=== PATIENT | female | born 1960 | race Caucasian/White ===

== ENCOUNTER → 2024-03-22 06:54 | Outpatient (REF) | payer OTHER, SELFPAY | LOC: HWWDC 06:54 | PROVIDERS: ATTENDING PHYSICIAN Nurse Practitioner Adult Health | DX: Z12.31 Encounter for screening mammogram for malignant neoplasm of breast (principal) | CPT/HCPCS: 77063; 77067 ==

== ENCOUNTER 2024-07-12 06:12 | Day surgery (SDC) | payer OTHER, SELFPAY ==
[2024-06-27 08:46] LABS: Hematocrit 38.3 % (37.0-47.0); Mean Corp Hgb Conc. 33.9 g/dL (33.0-37.0); Mean Corpuscular Volume 94.3 fL (81.0-99.0); Mean Platelet Volume 11.9 fL (7.4-10.4); Platelet Count 190 10^3/uL (130-400); Red Blood Cell Count 4.06 10^6/uL (4.20-5.40); Red Cell Dist. Width 11.5 % (11.5-14.5); White Blood Cell Count 7.5 10^3/uL (4.8-10.8)
[2024-06-27 09:13] LABS: Blood Urea Nitrogen 22 mg/dl (7-17); Calcium 9.8 mg/dl (8.4-10.2); Carbon Dioxide 29 mmol/L (22-30); Chloride 103 mmol/L (98-107); Glucose 79 mg/dl (70-99); Potassium 4.2 mmol/L (3.5-5.1); Sodium 145 mmol/L (135-145); eGFR > 60.00
[2024-06-27 09:42] VITALS: BMI 24.7
[2024-07-12] VITALS (10 sets, daily range): BP systolic 104–122; BP diastolic 51–65; BMI 24.7
[2024-07-12] MEDS: Pyridium 200 MG PO (07:09)
[2024-07-12] MEDS: NORMOSOL-R/PLASMALYTE-A 1000 IV (07:16)
--- NOTE | 2024-07-12 13:50 | PTCARENOTE ---
2nd post op bladder scan was 181 after voiding 150 ml. Will monitor patient.
--- NOTE | 2024-07-12 14:22 | PTCARENOTE ---
Patient tried voiding again and voided 125 ml of urine and was then bladder scanned for 181 ml of urine. 16 azeri hebert inserted and patient went home with hebert in. No issues with insertion and leg bag applied. Patient instructed with how to empty
hebert. Patient told to call office tomorrow to schedule removal. Will monitor patient.
== END 2024-07-12 14:21 | disposition home or self-care (01) ==
LOC: SDS 06:12
PROVIDERS: ATTENDING PHYSICIAN Obstetrics & Gynecology; FAMILY PHYSICIAN Nurse Practitioner Adult Health
DX: N81.2 Incomplete uterovaginal prolapse (principal); N88.8 Other specified noninflammatory disorders of cervix uteri; D25.9 Leiomyoma of uterus, unspecified; N39.3 Stress incontinence (female) (male)
CPT/HCPCS: 57425; 58542; 88305; 36415; 80048; 85027; 86850; 86900; 86901; 93005; C1763

== ENCOUNTER 2024-09-27 08:16 | Outpatient (RCR) | payer OTHER, SELFPAY | END 2024-09-27 23:59 | disposition home or self-care (01) | LOC: RPT 08:16 | PROVIDERS: ATTENDING PHYSICIAN Obstetrics & Gynecology; FAMILY PHYSICIAN Nurse Practitioner Adult Health | DX: M62.89 Other specified disorders of muscle (principal); R10.2 Pelvic and perineal pain; Z73.6 Limitation of activities due to disability; N39.46 Mixed incontinence; R35.0 Frequency of micturition; Z98.890 Other specified postprocedural states | CPT/HCPCS: 97161; 97530 ==

== ENCOUNTER 2024-11-18 07:08 | Outpatient (RCR) | payer OTHER, SELFPAY | END 2024-11-18 23:59 | disposition home or self-care (01) | LOC: RPT 07:08 | PROVIDERS: ATTENDING PHYSICIAN Obstetrics & Gynecology; FAMILY PHYSICIAN Nurse Practitioner Adult Health | DX: M62.89 Other specified disorders of muscle (principal); R10.2 Pelvic and perineal pain; Z73.6 Limitation of activities due to disability; N39.46 Mixed incontinence; R35.0 Frequency of micturition; Z98.890 Other specified postprocedural states | CPT/HCPCS: 97110; 97112; 97530 ==

== ENCOUNTER 2024-12-16 07:55 | Outpatient (RCR) | payer OTHER, SELFPAY | END 2024-12-16 23:59 | disposition home or self-care (01) | LOC: RPT 07:55 | PROVIDERS: ATTENDING PHYSICIAN Obstetrics & Gynecology; FAMILY PHYSICIAN Nurse Practitioner Adult Health | DX: M62.89 Other specified disorders of muscle (principal); R10.2 Pelvic and perineal pain; Z73.6 Limitation of activities due to disability; N39.46 Mixed incontinence; R35.0 Frequency of micturition; Z98.890 Other specified postprocedural states | CPT/HCPCS: 97110; 97112; 97140; 97530 ==

== ENCOUNTER 2024-12-29 19:02 | Outpatient (RCR) | payer OTHER, SELFPAY | END 2024-12-29 23:59 | disposition home or self-care (01) | LOC: RPT 19:02 | PROVIDERS: ATTENDING PHYSICIAN Obstetrics & Gynecology; FAMILY PHYSICIAN Nurse Practitioner Adult Health | DX: M62.89 Other specified disorders of muscle (principal); R10.2 Pelvic and perineal pain; Z73.6 Limitation of activities due to disability; N39.46 Mixed incontinence; R35.0 Frequency of micturition; Z98.890 Other specified postprocedural states | CPT/HCPCS: 97014; 97110; 97112; 97140 ==

== ENCOUNTER 2025-01-31 17:59 | Outpatient (RCR) | payer OTHER, SELFPAY | END 2025-01-31 23:59 | disposition home or self-care (01) | LOC: RPT 17:59 | PROVIDERS: ATTENDING PHYSICIAN Obstetrics & Gynecology; FAMILY PHYSICIAN Nurse Practitioner Adult Health | DX: M62.89 Other specified disorders of muscle (principal); R10.2 Pelvic and perineal pain; Z73.6 Limitation of activities due to disability; N39.46 Mixed incontinence; R35.0 Frequency of micturition; Z98.890 Other specified postprocedural states | CPT/HCPCS: 97014; 97110; 97112 ==

== ENCOUNTER 2025-03-14 17:59 | Outpatient (RCR) | payer OTHER, SELFPAY | END 2025-03-14 23:59 | disposition home or self-care (01) | LOC: RPT 17:59 | PROVIDERS: ATTENDING PHYSICIAN Obstetrics & Gynecology; FAMILY PHYSICIAN Nurse Practitioner Adult Health | DX: M62.89 Other specified disorders of muscle (principal); R10.2 Pelvic and perineal pain; Z73.6 Limitation of activities due to disability; N39.46 Mixed incontinence; R35.0 Frequency of micturition; Z98.890 Other specified postprocedural states | CPT/HCPCS: 97014; 97110; 97112; 97530 ==

== ENCOUNTER → 2025-03-23 06:34 | Outpatient (REF) | payer OTHER, SELFPAY | LOC: HWWDC 06:34 | PROVIDERS: ATTENDING PHYSICIAN Nurse Practitioner Adult Health | DX: Z12.31 Encounter for screening mammogram for malignant neoplasm of breast (principal) | CPT/HCPCS: 77063; 77067 ==

== ENCOUNTER 2025-04-10 08:02 | Outpatient (RCR) | payer OTHER, SELFPAY | END 2025-04-10 23:59 | disposition home or self-care (01) | LOC: RPT 08:02 | PROVIDERS: ATTENDING PHYSICIAN Obstetrics & Gynecology; FAMILY PHYSICIAN Nurse Practitioner Adult Health | DX: M62.89 Other specified disorders of muscle (principal); R10.2 Pelvic and perineal pain; Z73.6 Limitation of activities due to disability; N39.46 Mixed incontinence; R35.0 Frequency of micturition; Z98.890 Other specified postprocedural states | CPT/HCPCS: 97110; 97112; 97140 ==

== ENCOUNTER 2025-04-25 18:02 | Outpatient (RCR) | payer OTHER, SELFPAY | END 2025-04-25 23:59 | disposition home or self-care (01) | LOC: RPT 18:02 | PROVIDERS: ATTENDING PHYSICIAN Obstetrics & Gynecology; FAMILY PHYSICIAN Nurse Practitioner Adult Health | DX: M62.89 Other specified disorders of muscle (principal); R10.2 Pelvic and perineal pain; Z73.6 Limitation of activities due to disability; N39.46 Mixed incontinence; R35.0 Frequency of micturition; Z98.890 Other specified postprocedural states | CPT/HCPCS: 97110; 97112; 97530 ==